=== PATIENT | female | born 1970 | race Caucasian/White ===

== ENCOUNTER 2017-12-18 10:28 | Emergency (ER) | payer OTHER ==
[~2017-12-18] VITALS: Ht 170.2 cm; Wt 79.1 kg
[~2017-12-18 10:28] MED LIST: CEFDINIR300 MG PO; EPIPEN 2-P0.3 MG/0.3 IM; NOHOMEMEDICATIONS; PEPCID20 MG PO; PREDNISONE 20 M20 M1 PO
[2017-12-18] MEDS ORDERED: NORCO 5-325 TA1 EACH PO (11:57)
[2017-12-18 12:52] VITALS: BP 102/45
== END 2017-12-18 12:53 | disposition home or self-care (01) ==
LOC: M.ERS 10:28
DX: S76.012A Strain of muscle, fascia and tendon of left hip, initial encounter (principal); F17.210 Nicotine dependence, cigarettes, uncomplicated; Z88.2 Allergy status to sulfonamides; W10.8XXA Fall (on) (from) other stairs and steps, initial encounter; Y93.89 Activity, other specified; Y92.89 Other specified places as the place of occurrence of the external cause; Y99.8 Other external cause status